=== PATIENT | female | born 1980 | race Two or more races ===

== ENCOUNTER 2023-09-29 06:14 | Day surgery (SDC) | payer OTHER, SELFPAY ==
[2023-09-15 09:12] LABS: % Basophils 0.8 % (0-2); % Eosinophils 3.5 % (0-6); % Immature Granulocytes 0.7 % (0-0.5); % Monocytes 5.9 % (1.7-9.3); % Neutrophils 68.1 % (42.2-75.2); Absolute Basophils 0.1 10^3/uL (0-0.2); Absolute Eosinophils 0.3 10^3/uL (0-0.7); Absolute Immature Granulocytes 0.1 10^3/uL (0-0.05); Absolute Lymphocytes 1.6 10^3/uL (1.2-3.4); Absolute Monocytes 0.4 10^3/uL (0.1-0.6); Absolute Neutrophils 5.1 10^3/uL (1.4-6.5); Hemoglobin 13.5 g/dL (12.0-16.0); Mean Corp Hgb Conc. 33.8 g/dL (33.0-37.0); Mean Corpuscular Hgb 27.3 pg (27.0-31.0); Mean Platelet Volume 10.3 fL (7.4-10.4); Nucleated Red Blood Cells % 0 %; Platelet Count 294 10^3/uL (130-400); Red Blood Cell Count 4.94 10^6/uL (4.20-5.40); Red Cell Dist. Width 13.2 % (11.5-14.5); White Blood Cell Count 7.4 10^3/uL (4.8-10.8)
[2023-09-15 09:26] LABS: Blood Urea Nitrogen 4 mg/dl (7-17); Calcium 8.5 mg/dl (8.4-10.2); Carbon Dioxide 24 mmol/L (22-30); Chloride 104 mmol/L (98-107); Glucose 78 mg/dl (70-99); Potassium 3.8 mmol/L (3.5-5.1); Sodium 137 mmol/L (135-145); eGFR > 60.00
[2023-09-15 09:46] LABS: Beta HCG Quantitative < 2.39 mIU/ml
[2023-09-15 10:34] VITALS: BMI 30.6
[2023-09-29] VITALS (11 sets, daily range): BP systolic 124–170; BP diastolic 65–92; BMI 30.6
[2023-09-29 06:53] LABS: Glucose - Point of Care 91 mg/dl (70-99)
[2023-09-29] MEDS: NORMOSOL-R 1000 IV ×3 (06:54→22:39)
[2023-09-29] MEDS: TYLENOL 1000 MG PO ×3 (06:54→17:52)
[2023-09-29 10:24] LABS: Glucose - Point of Care 184 mg/dl (70-99)
[2023-09-29] MEDS: DILAUDID 0.5 MG IV (10:26)
--- NOTE | 2023-09-29 10:28 | W.IMMPOSTOP ---
Surgical Immed Post Op Note
-
Primary Surgeon: Martha Hare DO
Treatment Specialist: ÁLVARO Vaughan, ÁLVARO Louis
Pre-op Diagnosis: Menorrhagia, severe dysmenorrhea, left ovarian cyst likely endometrioma
Post-op Diagnosis: same, left endometrioma, pelvic adhesions
Procedure Performed: RA TLH Left salpingo-oopherectomy right salpingectomy lysis adhesions
Anesthesia Type: general ET Dr. Plascencia
Specimen / Cultures: uterus, cervix, left tube and ovary with endometrioma right fallopian tube
Estimated Blood Loss: 10 ml
Fluids: 1000ml
Urine output: 600ml clear yellow urine
Complications: none
Operative Findings: Normal appearing uterus, left ovarian endometrioma/paul cyst approx 4 cm, adhesions involving left ovary and pelvic peritoneum, normal appearing tubes and right ovary.
Counts correct times 2
Stable to recovery.
[2023-09-29 10:47] LABS: Hematocrit 41.3 % (37.0-47.0); Hemoglobin 13.8 g/dL (12.0-16.0)
[2023-09-29] MEDS: TORADOL 15 MG IV ×3 (11:02→22:43)
[2023-09-29 11:15] LABS: Blood Urea Nitrogen 6 mg/dl (7-17); Calcium 8.2 mg/dl (8.4-10.2); Carbon Dioxide 24 mmol/L (22-30); Chloride 102 mmol/L (98-107); Estimated Creatinine Clearance > 125 ml/min; Glucose 203 mg/dl (70-99); Potassium 4.3 mmol/L (3.5-5.1); Sodium 136 mmol/L (135-145); eGFR > 60.00
[2023-09-29 12:16] LABS: Glucose - Point of Care 203 mg/dl (70-99)
--- NOTE | 2023-09-29 12:53 | PTCARENOTE ---
Patient admitted from pacu post robotic assisted hysterectomy with right salpingectomy and left oophorectomy.The patient is drosy but arousable.She rates her pain at a 2 out of 10.All laparoscopic sites are dry with no drainage.There is no bleeding
on the esequiel pad.The patient is in her bed with the call castillo in reach.Her is at the bedside.
[2023-09-29] MEDS: NOVOLOG FLEXPEN 4 UNITS SC ×2 (12:57→17:51)
[2023-09-29] MEDS: NOVOLOG FLEXPEN-MODERATE RESISTANCE 3 UNITS SC (12:57)
[2023-09-29] MEDS: MORPHINE SULFATE 2 MG IV (16:12)
[2023-09-29 16:52] LABS: Glucose - Point of Care 281 mg/dl (70-99)
[2023-09-29] MEDS: NOVOLOG FLEXPEN-MODERATE RESISTANCE 5 UNITS SC (17:50)
[2023-09-29] MEDS: LOVENOX 40 MG SC (17:52)
[2023-09-29] MEDS: PEPCID 20 MG PO (20:24)
[2023-09-29] MEDS: COLACE 100 MG PO (20:24)
[2023-09-29] MEDS: NORMOSOL-R IV (20:24)
[2023-09-29] MEDS: ROXICODONE 2.5 MG PO (20:28)
[2023-09-29 21:39] LABS: Glucose - Point of Care 293 mg/dl (70-99)
[2023-09-29] MEDS: LANTUS 0.340000000000000024 UNITS SC (22:37)
--- NOTE | 2023-09-29 22:47 | PTCARENOTE ---
patient's out to nurse's station to report patient feeling nauseous and light headed. patient had been walking back from bathroom and stated she became very hot, nauseous and light headed but made it back to her bed on her own. vital signs
assessed and within normal. IVF restarted as patient says she can not tolerating taking anything PO right now. surgical sites intact and no vaginal bleeding noted or reported by patient. care on going.
--- NOTE | 2023-09-29 23:51 | PTCARENOTE ---
patient reports 'feeling better' no c/o nausea or vomiting. stated she has sipped some water and also walked to bathroom with tech supervision and had no feelings of lightheadedness this time. will leave IVF running overnight.
[2023-09-30] MEDS: TYLENOL 1000 MG PO ×2 (01:06→07:21)
[2023-09-30 03:40] VITALS: BP 104/57
[2023-09-30] MEDS: TORADOL 15 MG IV (05:36)
[2023-09-30] MEDS: NORMOSOL-R IV (05:53)
[2023-09-30 07:06] LABS: % Basophils 0.3 % (0-2); % Eosinophils 0.1 % (0-6); % Immature Granulocytes 0.4 % (0-0.5); % Lymphocytes 11.5 % (20.5-51.1); % Monocytes 6.6 % (1.7-9.3); % Neutrophils 81.1 % (42.2-75.2); Absolute Immature Granulocytes 0.1 10^3/uL (0-0.05); Absolute Lymphocytes 1.3 10^3/uL (1.2-3.4); Absolute Monocytes 0.7 10^3/uL (0.1-0.6); Hematocrit 27.3 % (37.0-47.0); Mean Corpuscular Hgb 27.2 pg (27.0-31.0); Mean Corpuscular Volume 82.5 fL (81.0-99.0); Mean Platelet Volume 10.1 fL (7.4-10.4); Nucleated Red Blood Cells % 0 %; Platelet Count 277 10^3/uL (130-400); Red Blood Cell Count 3.31 10^6/uL (4.20-5.40); Red Cell Dist. Width 13.1 % (11.5-14.5); White Blood Cell Count 11.1 10^3/uL (4.8-10.8)
[2023-09-30 07:30] LABS: Blood Urea Nitrogen 15 mg/dl (7-17); Carbon Dioxide 22 mmol/L (22-30); Chloride 98 mmol/L (98-107); Estimated Creatinine Clearance > 125 ml/min; Potassium 4.5 mmol/L (3.5-5.1); Sodium 128 mmol/L (135-145)
[2023-09-30 07:35] VITALS: BP 122/67
[2023-09-30 07:51] LABS: Glucose - Point of Care 338 mg/dl (70-99)
[2023-09-30] MEDS: NOVOLOG FLEXPEN-MODERATE RESISTANCE 7 UNITS SC (09:05)
[2023-09-30] MEDS: NOVOLOG FLEXPEN 4 UNITS SC (09:05)
[2023-09-30] MEDS: COLACE 100 MG PO (09:06)
[2023-09-30] MEDS: PEPCID 20 MG PO (09:06)
--- NOTE | 2023-09-30 09:28 | W.PN.OBG.DWH ---
Today's Communication / Plan
-
dc home
check chem 7 at end of week
Assessment/Plan
-
POD#1. robotic TLH, L ooph, bilat salpingectomies
Subjective Data
-
no complaints, voiding
Objective Data
-
Laboratory Results
09/30/23 06:41
09/30/23 06:41
Vital Signs
Temp Pulse Resp BP Pulse Ox
98.1 F 82 16 122/67 100
09/30/23 07:35 09/30/23 07:35 09/30/23 07:35 09/30/23 07:35 09/30/23 07:35
lungs cl
cor rrr
abd +bs soft, nt, incis sites c/d/i
ext nt, athrombic pumps in place
--- NOTE | 2023-09-30 10:29 | CM ---
CM reviewed chart and noted dc order
Bedside meeting with pt and spouse
They reside in a 2SH with 1 LISA- full flight to 2nd floor
Independent at baseline- no DMEs
No dc needs noted
Discharge Disposition- home, no needs
[2023-09-30 11:05] VITALS: BP 114/64
== END 2023-09-30 11:39 | disposition home or self-care (01) ==
LOC: SDS 06:14
PROVIDERS: ATTENDING PHYSICIAN Obstetrics & Gynecology; FAMILY PHYSICIAN Internal Medicine
DX: N72 Inflammatory disease of cervix uteri (principal); N80.102 Endometriosis of left ovary, unspecified depth; N92.0 Excessive and frequent menstruation with regular cycle; N83.202 Unspecified ovarian cyst, left side; N73.6 Female pelvic peritoneal adhesions (postinfective); E11.9 Type 2 diabetes mellitus without complications
CPT/HCPCS: 58571; 88307; 36415; 80048; 80051; 82565; 82962; 84520; 84702; 85014; 85018; 85025; 86850; 86900; 86901

== ENCOUNTER 2023-10-07 02:19 | Inpatient (IN) | payer OTHER, SELFPAY ==
[2023-10-06 21:10] VITALS: BP 104/76; BMI 29.8
[2023-10-06 21:51] VITALS: BP 122/65
[2023-10-06] MEDS: MOTRIN 600 MG PO (21:57)
[2023-10-06 21:59] LABS: % Basophils 0.4 % (0-2); % Eosinophils 2.1 % (0-6); % Immature Granulocytes 1.2 % (0-0.5); % Lymphocytes 11.7 % (20.5-51.1); % Monocytes 5.2 % (1.7-9.3); % Neutrophils 79.4 % (42.2-75.2); Absolute Eosinophils 0.2 10^3/uL (0-0.7); Absolute Immature Granulocytes 0.1 10^3/uL (0-0.05); Absolute Lymphocytes 1.3 10^3/uL (1.2-3.4); Absolute Monocytes 0.6 10^3/uL (0.1-0.6); Hematocrit 29.8 % (37.0-47.0); Hemoglobin 10.1 g/dL (12.0-16.0); Mean Corp Hgb Conc. 33.9 g/dL (33.0-37.0); Mean Corpuscular Hgb 27.7 pg (27.0-31.0); Mean Corpuscular Volume 81.6 fL (81.0-99.0); Nucleated Red Blood Cells % 0 %; Platelet Count 404 10^3/uL (130-400); Red Blood Cell Count 3.65 10^6/uL (4.20-5.40); Red Cell Dist. Width 13.2 % (11.5-14.5); White Blood Cell Count 11.3 10^3/uL (4.8-10.8)
[2023-10-06 22:00] VITALS: BP 102/68
[2023-10-06 22:07] LABS: Lactic Acid 1.8 mmol/L (0.7-2.0)
[2023-10-06 22:12] LABS: ALT (SGPT) 23 U/L (0-35); AST (SGOT) 25 U/L (14-36); Albumin 4.3 g/dl (3.5-5.0); Alkaline Phosphatase 90 U/L (38-126); Blood Urea Nitrogen 10 mg/dl (7-17); Carbon Dioxide 26 mmol/L (22-30); Chloride 97 mmol/L (98-107); Estimated Creatinine Clearance 125 ml/min; Glucose 178 mg/dl (70-99); Potassium 4.6 mmol/L (3.5-5.1); Sodium 131 mmol/L (135-145); Total Bilirubin 1.3 mg/dl (0.2-1.3); Total Protein 7.1 g/dl (6.3-8.2); eGFR > 60.00
[2023-10-06] MEDS: NSS 1000 IV (22:33)
--- NOTE | 2023-10-06 22:45 | ED.GENMED ---
History of Present Illness
<Shahla Trejo PA-C - Last Filed: 10/07/23 02:46>
General
Chief Complaint: Fever
Source: patient, records and family
Exam Limitations: none
Time Seen by Provider: 10/06/23 21:48
Nursing documentation reviewed up to this point in time: agreed with
Travel History
Have you had any contact with someone who has COVID-19?: No
Do you have any symptoms of coronavirus? Fever > 100 degrees, chills, cough, shortness of breath, sore throat, loss of taste or smell, muscle aches, or headache?: No
History of Present Illness
History of Present Illness:
Patient is a 40-year-old female with past medical history of insulin-dependent diabetes, GERD, endometriosis, presents to the emergency department for evaluation of fever. Patient underwent laparoscopic hysterectomy, left salpingo-oophorectomy,
right salpingectomy and lysis of adhesions on September 29, 2023 at [facility]. Patient reports that she has had low-grade fevers for the past 3 or 4 days, with Tmax being 99 degrees Fahrenheit. Patient reports that she went to see her GEOPHYSICAL DATA TECHNICIAN
today and they told her that her incisions look good and gave her a prescription to have blood work tomorrow. However they, they advised her that if her temperature went above 100.6, that she should come to the emergency department for further
evaluation. Patient reports that her fever went up to 102 �F at home this evening, prompting her to come to the emergency department. Patient endorses fevers, chills, body aches. Patient denies chest pain, shortness of breath. Patient does note
a dry cough and states that her parents are currently sick with upper respiratory symptoms as well as a cough. Patient notes some abdominal discomfort but attributes that to her recent surgery. Patient denies nausea, vomiting, change in her bowel
habits. Patient notes that it feels like it is more difficult to get the urine out but denies any pain or burning with urination.
Past History
<Shahla Trejo PA-C - Last Filed: 10/07/23 02:46>
Past History
ED Past Medical History: GERD, IDDM and Other (endometriosis)
ED Past Surgical History: Appendectomy and Other ([place] teeth extraction)
Social History
Tobacco: Non-smoker
Alcohol: Occasional
Drug: None
Review of Systems
<Shahla Trejo PA-C - Last Filed: 10/07/23 02:46>
Review of Systems
Allergies reviewed?: Yes
All Other Systems: ROS reviewed and negative except as documented in HPI and ROS
Constitutional: Reports fever and chills
EENT: Reports no symptoms
Respiratory: Reports cough; Denies trouble breathing
Cardiac: Reports no symptoms; Denies chest pain
ABD/GI: Reports abdominal pain; Denies nausea, vomiting, diarrhea or constipated
: Reports difficulty voiding; Denies dysuria
Musculoskeletal: Reports no symptoms
Skin: Reports no symptoms
Neurological: Reports no symptoms
Endocrine: Reports no symptoms
Hematologic/Lymphatic: Reports no symptoms
Psychiatric: Reports no symptoms
Phy Exam
<Shahla Trejo PA-C - Last Filed: 10/07/23 02:46>
General Physical Exam
General Presentation: well appearing and no apparent distress
General Skin: warm and dry
General Habitus: normal
General Mental: alert
General Hydration: appears well hydrated
ENT Exam
ENT Exam: EOMI, pharynx normal, neck supple and normocephalic
Eye Exam
Eye Exam: PERRL, cornea clear and conjunctiva normal
Cardiovascular Exam
Cardiovascular Exam: regular rate/rhythm, no edema, no murmur and normal peripheral pulses
Pulmonary Exam
Pulmonary Exam: lungs clear, no respiratory distress, no rales, no crackles, no rhonchi, no stridor, no wheezing and no cough
Gastrointestinal Exam
Gastrointestinal Exam: normal bowel sounds, soft, no organomegaly and other (incision sites to the upper abdomen are clean, dry, and intact, there is mild ttp diffusely over the upper quadrants and mid-epigastrium, no lower abdominal ttp)
Neurological Exam
Neurological Exam: alert, oriented x3, no motor deficits and speech normal
Musculoskeletal Exam
Musculoskeletal Exam: full ROM and no edema
Skin Exam
Skin Exam: normal color, warm/dry, no rash and no petechia
Psychiatric Exam
Psychiatric Exam: normal mood/affect
Course
<Shahla Trejo PA-C - Last Filed: 10/07/23 02:46>
Orders/Labs/Results
Orders:
Orders
10/06/23 21:46
CMP [Comprehensive Metabolic Panel] Urgent
Blood Culture Routine
SAM Source: Blood/Venous
Specimen Description:
Date Specimen was Collected: 10/06/23
Time Specimen was Collected: 21:44
10/06/23 21:47
Complete Blood Count/With Diff Urgent
Lactic Acid Urgent
10/06/23 21:54
Ibuprofen [Motrin] 600 mg PO NOW STA
10/06/23 22:23
0.9% Sodium Chloride 1000 ml [Nss] 1,000 ml IV BOLUS
10/06/23 22:24
CR Chest - 2 Views Urgent
Comment:
Reason For Exam: cough, fever
10/06/23 22:35
COVID-19 Antigen Urgent
Source: Nasal Swab
Influenza A+B Rapid Molecular Urgent
SAM Source: Nasal Swab
Specimen Description:
10/06/23 22:58
Urine Culture Reflexed from UA [Urinalysis Reflex To Culture] Urgent
Date Specimen was Collected: 10/06/23
Time Specimen was Collected: 22:28
Urine Microscopic Reflex Cult Urgent
10/07/23 00:00
CT Abd/pelvis W Iv Cont Urgent
Reason For Exam: recent gynecological surgery, fever, abdominal john
10/07/23 01:58
Admit/Transfer Patient As Directed
Co-Sign Provider:
Level of Care: Inpatient admission
Assign to:: Medical/Surgical
Physician / Group: la nena
Transfer to: Medical/Surgical
Diagnosis: fever, cuff collection
Patient Condition: Good
Reason for Hospitalization: iv abx, rx collection
Expected length of stay greater than two midnights?: Yes
ELOS- Estimated Length of Stay in days: 3
I certify the patient meets the requirements for IP care: Yes
10/07/23 02:00
Piperacillin/Tazo 4.5 Gram [Zosyn] 4.5 gram in 100 ml IV Q6H
Abnormal Lab Results
10/06/23 10/06/23 10/06/23
21:46 21:47 22:58
WBC 11.3 H 10^3/uL
(4.8-10.8)
RBC 3.65 L 10^6/uL
(4.20-5.40)
Hgb 10.1 L g/dL
(12.0-16.0)
Hct 29.8 L %
(37.0-47.0)
Plt Count 404 H D 10^3/uL
(130-400)
Abs Immat Gran (auto) 0.1 H 10^3/uL
(0-0.05)
Absolute Neuts (auto) 9.0 H 10^3/uL
(1.4-6.5)
Immature Gran % 1.2 H %
(0-0.5)
Neutrophils % 79.4 H %
(42.2-75.2)
Lymphocytes % 11.7 L %
(20.5-51.1)
Sodium 131 L mmol/L
(135-145)
Chloride 97 L mmol/L
(98-107)
Creatinine 0.5 L mg/dL
(0.6-1.0)
Glucose 178 H mg/dl
(70-99)
Urine Ketones 1+ A
(Negative)
Leukocyte Esterase Rfl Trace A
(Negative)
Urine Bacteria (Reflex) Few A
(Negative)
10/06/23 21:47
10/06/23 21:46
Vital Signs
Initial and Last Documented VS:
Initial Vital Signs
Temp Pulse Resp BP Pulse Ox
99.6 F 108 16 104/76 99
10/06/23 21:10 10/06/23 21:10 10/06/23 21:10 10/06/23 21:10 10/06/23 21:10
Last Documented Vital Signs
Temp Pulse Resp BP Pulse Ox
100.0 F 108 16 102/68 99
10/07/23 00:39 10/06/23 21:10 10/06/23 21:10 10/06/23 22:00 10/06/23 22:30
<Sai Booth, DO - Last Filed: 10/06/23 23:14>
Orders/Labs/Results
Orders:
Orders
10/06/23 21:46
CMP [Comprehensive Metabolic Panel] Urgent
Blood Culture Routine
SAM Source: Blood/Venous
Specimen Description:
Date Specimen was Collected: 10/06/23
Time Specimen was Collected: 21:44
10/06/23 21:47
Complete Blood Count/With Diff Urgent
Lactic Acid Urgent
10/06/23 21:54
Ibuprofen [Motrin] 600 mg PO NOW STA
10/06/23 22:23
0.9% Sodium Chloride 1000 ml [Nss] 1,000 ml IV BOLUS
10/06/23 22:24
CR Chest - 2 Views Urgent
Comment:
Reason For Exam: cough, fever
10/06/23 22:35
COVID-19 Antigen Urgent
Source: Nasal Swab
Influenza A+B Rapid Molecular Urgent
SAM Source: Nasal Swab
Specimen Description:
10/06/23 22:58
Urine Culture Reflexed from UA [Urinalysis Reflex To Culture] Urgent
Date Specimen was Collected: 10/06/23
Time Specimen was Collected: 22:28
Urine Microscopic Reflex Cult Urgent
10/07/23 00:00
CT Abd/pelvis W Iv Cont Urgent
Reason For Exam: recent gynecological surgery, fever, abdominal john
10/07/23 01:58
Admit/Transfer Patient As Directed
Co-Sign Provider:
Level of Care: Inpatient admission
Assign to:: Medical/Surgical
Physician / Group: yeh
Transfer to: Medical/Surgical
Diagnosis: fever, cuff collection
Patient Condition: Good
Reason for Hospitalization: iv abx, rx collection
Expected length of stay greater than two midnights?: Yes
ELOS- Estimated Length of Stay in days: 3
I certify the patient meets the requirements for IP care: Yes
10/07/23 02:00
Piperacillin/Tazo 4.5 Gram [Zosyn] 4.5 gram in 100 ml IV Q6H
Abnormal Lab Results
10/06/23 10/06/23 10/06/23
21:46 21:47 22:58
WBC 11.3 H 10^3/uL
(4.8-10.8)
RBC 3.65 L 10^6/uL
(4.20-5.40)
Hgb 10.1 L g/dL
(12.0-16.0)
Hct 29.8 L %
(37.0-47.0)
Plt Count 404 H D 10^3/uL
(130-400)
Abs Immat Gran (auto) 0.1 H 10^3/uL
(0-0.05)
Absolute Neuts (auto) 9.0 H 10^3/uL
(1.4-6.5)
Immature Gran % 1.2 H %
(0-0.5)
Neutrophils % 79.4 H %
(42.2-75.2)
Lymphocytes % 11.7 L %
(20.5-51.1)
Sodium 131 L mmol/L
(135-145)
Chloride 97 L mmol/L
(98-107)
Creatinine 0.5 L mg/dL
(0.6-1.0)
Glucose 178 H mg/dl
(70-99)
Urine Ketones 1+ A
(Negative)
Leukocyte Esterase Rfl Trace A
(Negative)
Urine Bacteria (Reflex) Few A
(Negative)
10/06/23 21:47
10/06/23 21:46
Vital Signs
Initial and Last Documented VS:
Initial Vital Signs
Temp Pulse Resp BP Pulse Ox
99.6 F 108 16 104/76 99
10/06/23 21:10 10/06/23 21:10 10/06/23 21:10 10/06/23 21:10 10/06/23 21:10
Last Documented Vital Signs
Temp Pulse Resp BP Pulse Ox
100.0 F 108 16 102/68 99
10/07/23 00:39 10/06/23 21:10 10/06/23 21:10 10/06/23 22:00 10/06/23 22:30
<Shahla Trejo PA-C - Last Filed: 10/07/23 02:46>
*Critical Care Note
Total Time (30-74mins, 75-104mins- exclusive of procedures): Not Applicable
<Shahla Trejo PA-C - Last Filed: 10/07/23 02:46>
Update Note
Update Note:
43-year-old female presents to the emergency department for evaluation of fever 1 week after undergoing gynecological surgery. Patient endorses a dry cough and some mild abdominal pain, denies any other complaints today. On arrival, patient's
vital signs are stable, she was initially afebrile but on recheck was found to be febrile to 103 �F. On exam, patient is well-appearing, she is in no acute distress, her lungs are clear to auscultation bilaterally, her incision sites appear to be
healing well without evidence of infection, she does have mild diffuse upper abdominal tenderness to palpation without rebound or guarding. Labs are obtained and are notable for a very mild leukocytosis to 11.3 with a left shift. Urinalysis is not
consistent with infection. Chest x-ray demonstrates no acute disease process. COVID and flu swabs are negative. Case discussed with ED attending who also examined the patient and agrees with plan to obtain a CT of the abdomen pelvis to evaluate
further. CT demonstrates hematoma at the vaginal cuff which could potentially be infected. Case was discussed with Dr. Tinajero, on-call for MANAGER CHINA who came to the emergency department to evaluate the patient at bedside. She recommends starting the
patient on Zosyn and admitting the patient to her service. Plan was discussed with the patient and her sister who expressed understanding and agreed.
ED Attending Note
<Shahla Trejo PA-C - Last Filed: 10/07/23 02:46>
-
Portions of this chart may have been created with voice recognition software.� Occasional wrong word or��sound alike� substitutions may have occurred due to the inherent limitations of voice recognition software.
<Sai Booth DO - Last Filed: 10/06/23 23:14>
ED Attending Note
Patient seen and examined by attending physician: Yes
I performed the substantive portion of visit, reviewed & personally made and approve the management plan that is documented in note by myself or SOWMYA.: Yes
ED Attending Note:
43-year-old female presents with fever. Recent robotic assisted total laparoscopic hysterectomy. Does have some lower abdominal pain. Sick contacts recently with some viral sources. Exam: Incisions look intact and without redness. Does have
moderate lower abdominal tenderness. Assessment and plan: Check CT. Discussed with MANAGER CHINA if needed
Discharge Plan
Departure
Patient Disposition: Admit
Date of Disposition: 10/07/23
Time of Disposition: 01:11
Presentation/result/management discussed w/ accepting MD/DO: Dr. Tinajero- Gynecology
Condition: Good
Covid-19: Negative COVID-19
Discharge Problem:
Post op infection
Interventions
Interventions:
*Risk Screen - Suicide Last Done: 10/06/23 21:10
*General Assessment Last Done: 10/06/23 22:04
*Neglect/Abuse Screening Last Done: 10/06/23 21:10
ED- Fall Risk Assessment Last Done: 10/06/23 22:04
*ED COVID-19 Vaccine History Last Done: 10/06/23 21:10
ED- Neurological Assessment Last Done: 10/06/23 22:04
ED-Skin Assessment Last Done: 10/06/23 22:04
[2023-10-06 22:58] LABS: COVID-19 Antigen Negative (Negative)
[2023-10-06 23:04] LABS: Urine Albumin Negative (Neg - Trace); Urine Bilirubin Negative (Negative); Urine Character Clear (Clear); Urine Color Yellow; Urine Glucose Negative (Negative); Urine Ketone 1+ (Negative); Urine Leukocyte Trace (Negative); Urine Nitrite Negative (Negative); Urine Occult Blood Negative (Negative); Urine Specific Gravity 1.005 (<1.030); Urine Urobilinogen Negative (Neg - 1+)
[2023-10-06 23:12] LABS: Urine Squamous Cell >30 /LPF (Few)
[2023-10-06 23:13] LABS: Urine Bacteria Few (Negative); Urine Red Blood Cell 0-2 /HPF (0-2)
[2023-10-07] VITALS (8 sets, daily range): BP systolic 75–112; BP diastolic 48–80; BMI 30.1
[2023-10-07] MEDS: ZOSYN 100 IV ×4 (01:12→20:10)
--- NOTE | 2023-10-07 02:00 | EDRN ---
WINCHMAN/CRANE OPERATOR at bedside doing exam
--- NOTE | 2023-10-07 02:15 | W.PN.OBG.DWH ---
Today's Communication / Plan
-
admit for iv abx
keep NPO for possible drainage of collection via sedation
Assessment/Plan
-
admit for iv abx
await cx results
review ct scan findings in am
possible drainage of collection
Subjective Data
-
H and P dictated
POD#8 for 43 yo P2 s/p robotic tLH, LSO, R salpingectomy ANJUM with tm 103. elevated wbc. suprapubic discomfort with trickling stream.
Objective Data
-
Laboratory Results
10/06/23 21:47
10/06/23 21:46
Vital Signs
Temp Pulse Resp BP Pulse Ox
100.0 F 108 16 102/68 99
10/07/23 00:39 10/06/23 21:10 10/06/23 21:10 10/06/23 22:00 10/06/23 22:30
vaginal exam. cuff suture line intact and unable to drain collection in ED
--- NOTE | 2023-10-07 03:14 | EDRN ---
Patients BP is a little lower, tiger texted Dr. Tinajero to inform about vitals, Dr. Tinajero ordering fluids and keep patient NPO
[2023-10-07 08:02] LABS: Glucose - Point of Care 234 mg/dl (70-99)
[2023-10-07] MEDS: TYLENOL 1000 MG PO ×3 (08:28→17:16)
--- NOTE | 2023-10-07 09:46 | CON.HOSP ---
Consultation
-
Date/Time Consultation Requested: 10/07/23 9AM
Date/Time Consultation Performed: 10/07/23 9:40AM
Requesting Provider: Dr. Hare
Performing Provider: Dr. Ciera Merchant
Reason for Consultation: Diabetes management
Family Physician
-
Family Physician: Fernandez Dumont, DO
Chief Complaint
-
fever, abdominal pain post hysterectomy
History of Present Illness
Patient is a 43-year-old female with type 2 diabetes mellitus on insulin since 2015 who had a hysterectomy on September 29, 2023 for endometriosis and ovarian cyst. She had low-grade fever since but last evening presented with fever of 103 �F. She
also had lower abdominal pain. Patient states that her incision is high output but the pain is not there. She was found to have 'pockets of fluids' in her abdomen and was admitted. We are asked to consult on the patient for diabetes management.
Medical History
Past Medical History
Past Medical History: Reports Other
Additional Past Medical History:
Type 2 diabetes mellitus since age 26 insulin requiring since 2015
Hyperlipidemia
Endometriosis with ovarian cyst
Past Surgical History: Reports Other
Additional Past Surgical History:
Appendectomy 1993
Hysterectomy 2023
Social History
Tobacco: Non-smoker
Alcohol: None
Drug: None
Family History
Family History: Other
Allergies / Home Medications
Allergies reflects when Allergies were last updated in [facility].
Home Medications with original date entered in [facility]
Allergy/Medication List:
Allergies
Allergy/AdvReac Type Severity Reaction Status Date / Time
acetaminophen [From Vicodin] Allergy Nausea / Verified 10/06/23 21:12
Vomiting
hydrocodone [From Vicodin] Allergy Nausea / Verified 10/06/23 21:12
Vomiting
Home Medications
Novolin N FlexPen 20 units SC MEALS 09/25/23
Pepcid 1 tab PO DAILY Gastrointestinal Issue 09/25/23
Tresiba FlexTouch U-200 34 units SC DAILY Diabetes 09/25/23
losartan 50 mg tablet 50 mg PO HS Blood Pressure 09/25/23
omega-3 fatty acids 2 cap PO DAILY Supplement 09/25/23
acetaminophen 325 mg tablet 1,000 mg (3.0769 x 325 mg) PO Q6 #0 tabs 09/29/23
oxycodone 5 mg tablet 2.5 mg (1/2 x 5 mg) PO Q4HPRN PRN moderate pain #0 tabs 09/29/23
oxycodone 5 mg tablet 5 mg PO Q4HPRN PRN severe pain when tolerating PO #10 tabs 09/29/23
rosuvastatin 5 mg tablet 5 mg PO HS #0 tabs 09/29/23
sennosides 8.6 mg tablet (Senna Laxative) 8.6 mg PO BIDPRN PRN constipation #0 tabs 09/29/23
simethicone 80 mg chewable tablet 80 mg PO Q6HPRN PRN gas distention #0 tabs 09/29/23
Review of Systems
-
History Source: Patient
Constitutional: Reports Fever, Night Sweats and Chills
EENT: Reports No Symptoms
Respiratory: Reports No Symptoms
Cardiac: Reports No Symptoms
Abdomen/GI: Reports Abdominal Pain; Denies Nausea, Vomiting, Diarrhea or Constipated
: Reports Difficulty Voiding (little amounts of urine until speculum exam in ED by ROAD FREIGHT CONDUCTOR)
Musculoskeletal: Reports No Symptoms
Skin: Reports No Symptoms
Neurological: Reports No Symptoms
Endocrine: Reports No Symptoms
Hematologic/Lymphatic: Reports No Symptoms
Psych: Reports No Symptoms
Physical Exam
Vital Signs
Vital Signs
Temp Pulse Resp BP Pulse Ox
99 F 87 18 100/62 100
10/07/23 07:06 10/07/23 07:06 10/07/23 07:06 10/07/23 07:06 10/07/23 07:06
Physical Exam
General: Well Developed, Well Nourished and No Apparent Distress
HEENT: Normocephalic and Atraumatic
Respiratory: Clear; Negative Wheezes, Rales or Rhonchi
Cardiac: S1/S2 and Regular Rhythm; Negative Murmur
GI: Soft, Non Distended, Normal Bowel Sounds, Tender (bilateral lower abdomen L > R) and Other (incisions c/d/i)
Musculoskeletal: No Clubbing, No Cyanosis and No Edema
Skin: Warm
Neuro: Awake and Alert
Psych: Calm
Laboratory Results
-
max temp for 24 hours
10/06/23
21:48
Temp 103.0 F H
Laboratory Results
10/06/23 21:47
10/06/23 21:46
Lactic Acid 1.8 mmol/L (0.7-2.0) 10/06/23 21:47
Total Bilirubin 1.3 mg/dl (0.2-1.3) 10/06/23 21:46
AST 25 U/L (14-36) 10/06/23 21:46
ALT 23 U/L (0-35) 10/06/23 21:46
Alkaline Phosphatase 90 U/L (38-126) 10/06/23 21:46
Impression / Plan
-
pt is a 43 year old female
type 2 DM uncontrolled--blood sugars running in the 200s--patient states that she had been uncontrolled prior to her hysterectomy and that they were adjusting medications--she remains n.p.o. for now due to possibility of needing aspiration of fluid
collection (likely hematoma versus abscess)--will add moderate scale insulin sliding scale coverage--once patient is able to eat will restart all medications and adjust from there--diabetic diet to be started once IR procedure completed--will
continue losartan for renal protective effect
Abdominal pain--hematoma versus abscess--appreciate RO[employer] CONDUCTOR input--agree with IR aspiration for culture--agree with continuing antibiotics
Hyperlipidemia--continue rosuvastatin
DVT prophylaxis as per RO[facility] [employer] CONDUCTOR
CODE STATUS--full code
Thank you for allowing us to consult on your patient--we will follow
--- NOTE | 2023-10-07 10:07 | CM ---
CM reviewed chart and met with patient.
She and spouise reside in a 2SH with 1 LISA- full flight to 2nd floor
Independent at baseline- no DMEs
No dc needs noted but patient states not decision made on how long she will need IV antibiotics. CM to follow for discharge needs.
Discharge Disposition- home.
--- NOTE | 2023-10-07 11:08 | W.PN.OBG.DWH ---
Today's Communication / Plan
-
NPO for IRAD drainage today
May eat after returns from procedure
Diabetes mgmt per hospitalist.
Assessment/Plan
-
POD#7 S/P RA TLH BL salpingectomy for menorrhagia/fibroid
Fever and pelvic collection-reviewed CT with Dr. Jean. Also communicated with Dr. Fofana. Collection seems to be more of hematoma than abscess appearance.
DM with elevated BS
Plan: Continue with Zosyn IV
Will have IRad attempt t place drain-if able to obtain fluid to send for culture, rule out abscess. Would prefer to attempt to drain due to fever 103 last night and diabetes. Elevated temp can occur in setting of hematoma but she is high risk for
superinfection of hematoma due to diabetes. Hgb is stable, higher today than oon admit.
Reviewed all of this with Didi. She is aware will be in hospital for at least a few days and clinically improved. Questions answered. Her sister is present the hwole visit for discussion today.
NPO since 09:00 for planned IRAD drainage hopefully.
Suspect back pain may be related to hematoma. Will monitor.
Reviewed case with / Shonda today as well. Diabetes mgmt consult ordered from hospitalist.
Subjective Data
-
I saw Didi approx 1 hr ago. She is feeling ok.
Reports some low backache left >right. Stated urination was more of a trickle before admit byut after Dr. Tinajero attempted to open vaginal cuff (which was not successful) urination improved, normal.
Had chills last pm. Hungry. Has been NPO since 09:00.
Denies abdominal pain, N/V, bleeding
Objective Data
-
Laboratory Results
10/06/23 21:47
10/06/23 21:46
Vital Signs
Temp Pulse Resp BP Pulse Ox
99 F 87 18 100/62 100
10/07/23 07:06 10/07/23 07:06 10/07/23 07:06 10/07/23 07:06 10/07/23 07:06
VSS Tmax 103 (last pm 21:48) Tc this am 99
Cor reg
abd: soft +bs nondistended nontender inc cdi
ext: no calf pain
[2023-10-07] MEDS: HUMULIN N KWIKPEN 10 UNITS SC (11:46)
[2023-10-07 12:02] LABS: Glucose - Point of Care 211 mg/dl (70-99)
--- NOTE | 2023-10-07 13:25 | W.PN.UPDATE ---
Update Note
Progress Note Update
CT guided pelvic collection drain placed, yielding 10 cc of liquified blood products. Collection is likely hematoma rather than abscess. If cultures are negative, may be able to remove drain in the next day or two.
[2023-10-07 14:03] LABS: Glucose - Point of Care 175 mg/dl (70-99)
[2023-10-07] MEDS: NOVOLOG FLEXPEN-MODERATE RESISTANCE 1 UNITS SC (14:06)
[2023-10-07 16:57] LABS: Glucose - Point of Care 307 mg/dl (70-99)
[2023-10-07] MEDS: ROXICODONE 2.5 MG PO (17:16)
[2023-10-07] MEDS: NOVOLOG FLEXPEN-MODERATE RESISTANCE 7 UNITS SC (17:17)
[2023-10-07] MEDS: HUMULIN N KWIKPEN 25 UNITS SC (17:17)
--- NOTE | 2023-10-07 18:04 | PTCARENOTE ---
return from IR ~1330 ANNAMARIA drain placed in rt buttocks. draining sanguinous fluid 4x4 with tape and manish. 1800 ADA diet ordered, some discomfort but no pain. Cultures sent
--- NOTE | 2023-10-07 19:39 | W.PN.UPDATE ---
Update Note
Progress Note Update
Communicated with Dr. Fofana earlier this afternoon. IRAD was able to place drain and approx 10ml was aspirated. Impression was this is hematoma.
RN calling me now with pt request for ibuprofen for pain. Oxycodone was making her nauseous. Ibuprofen ordered
[2023-10-07 21:25] LABS: Glucose - Point of Care 223 mg/dl (70-99)
[2023-10-07] MEDS: MELATONIN 5 MG PO (21:32)
[2023-10-07] MEDS: CRESTOR 5 MG PO (21:32)
[2023-10-07] MEDS: MOTRIN 600 MG PO (21:33)
[2023-10-07] MEDS: COZAAR 50 MG PO (21:33)
[2023-10-07] MEDS: PEPCID 20 MG PO (21:33)
[2023-10-08] MEDS: TYLENOL 1000 MG PO ×4 (01:27→23:04)
[2023-10-08] MEDS: ZOSYN 100 IV ×4 (01:27→20:59)
[2023-10-08 07:05] VITALS: BP 104/52
[2023-10-08 07:32] LABS: Hematocrit 24.6 % (37.0-47.0); Hemoglobin 8.3 g/dL (12.0-16.0); Mean Corp Hgb Conc. 33.7 g/dL (33.0-37.0); Mean Corpuscular Hgb 27.9 pg (27.0-31.0); Mean Corpuscular Volume 82.6 fL (81.0-99.0); Platelet Count 333 10^3/uL (130-400); Red Blood Cell Count 2.98 10^6/uL (4.20-5.40); Red Cell Dist. Width 13.2 % (11.5-14.5); White Blood Cell Count 7.1 10^3/uL (4.8-10.8)
[2023-10-08] MEDS: LANTUS 0.400000000000000022 UNITS SC (08:05)
[2023-10-08] MEDS: NOVOLOG FLEXPEN-MODERATE RESISTANCE 1 UNITS SC ×2 (08:06→17:46)
[2023-10-08] MEDS: HUMULIN N KWIKPEN 30 UNITS SC ×3 (08:06→17:47)
[2023-10-08 08:09] LABS: Blood Urea Nitrogen 6 mg/dl (7-17); Calcium 8.7 mg/dl (8.4-10.2); Carbon Dioxide 24 mmol/L (22-30); Chloride 103 mmol/L (98-107); Estimated Creatinine Clearance 123 ml/min; Glucose 118 mg/dl (70-99); Magnesium 2.1 mg/dl (1.6-2.3); Sodium 136 mmol/L (135-145); eGFR > 60.00
[2023-10-08 08:16] LABS: Glucose - Point of Care 158 mg/dl (70-99)
--- NOTE | 2023-10-08 10:25 | W.PN.HOSP.TC ---
Today's Communication/Plan
-
care per GAS LINE INSTALLER SUPERVISOR
will follow sugars and adjust insulin as needed
Assessment / Plan
Assessment / Plan
pt is a 43 year old female
type 2 DM uncontrolled--blood sugars running in the 200s--patient states that she had been uncontrolled prior to her hysterectomy and that they were adjusting medications- moderate scale insulin sliding scale coverage-- cont diabetic diet--will
continue losartan for renal protective effect--novolog increased to 30 units with meals--increased lantus
Abdominal pain--hematoma versus abscess--appreciate GAS LINE INSTALLER SUPERVISOR input--s/p IR aspiration for culture, drain in place--cultures pending--agree with continuing zosyn
Hyperlipidemia--continue rosuvastatin
DVT prophylaxis as per GAS LINE INSTALLER SUPERVISOR
CODE STATUS--full code
Thank you for allowing us to consult on your patient--we will follow
Anticipated Discharge: > 48 hours
Subjective/Interval History
-
Date of Service: October 08, 2023
pt without any further pain--drain in place s/p IR aspiration
Objective Data
-
Labs:
Laboratory Results
10/08/23 10/08/23
12:00
WBC 7.1
Hgb 8.3 L Pending
Hct 24.6 L Pending
Plt Count 333
Sodium 136
Potassium 4.0
Chloride 103
Carbon Dioxide 24
BUN 6 L
Creatinine 0.5 L
Glucose 118 H
Calcium 8.7
Vital Signs:
max temp for 24 hours
10/07/23
15:36
Temp 98.8 F
Vital Signs
Temp Pulse Resp BP Pulse Ox
97.9 F 72 19 104/52 99
10/08/23 07:05 10/08/23 07:05 10/08/23 07:05 10/08/23 07:05 10/08/23 07:05
I&O
10/07/23 10/08/23 10/09/23
06:59 06:59 06:59
Intake Total 970 / 970 480 / 480
Output Total
Balance 955 / 955 465 / 465
Review of Systems
-
All other systems: Reviewed and negative
Physical Exam
-
General: Well Developed, Well Nourished and No Apparent Distress
HEENT: Normocephalic and Atraumatic
Respiratory: Clear to Auscultation; Negative Wheezes or Rhonchi
Cardiac: Regular Rhythm and S1/S2; Negative Murmur
GI: Soft, Nontender, Nondistended, Normal Bowel Sounds and Other (ANNAMARIA drain in place with bloody d/c)
Musculoskeletal: No Clubbing, No Cyanosis and No Edema
Skin: Warm
Neuro: Awake
--- NOTE | 2023-10-08 10:28 | CM ---
Chart reviewed. CM following for dcp plans. Noted IR drain. Please consult CM if plan is for pt to dc with drain in order to arrange for VN.
Will continue to follow.
[2023-10-08 10:36] LABS: Glycohemoglobin (HgbA1c) 8.2 % (4.0-5.6)
[2023-10-08 12:07] LABS: Glucose - Point of Care 314 mg/dl (70-99)
[2023-10-08] MEDS: NOVOLOG FLEXPEN-MODERATE RESISTANCE 7 UNITS SC (12:16)
[2023-10-08] MEDS: TYLENOL PO (12:18)
[2023-10-08 12:21] LABS: Hemoglobin 8.5 g/dL (12.0-16.0)
--- NOTE | 2023-10-08 12:48 | W.PN.OBG.DWH ---
Today's Communication / Plan
-
Continue IV Zosyn
Awaiting final culture results.
Continue with ANNAMARIA drain until neg cultures.
Plan discussed with pt.
Assessment/Plan
-
Impression:
POD#8 s/p RA TLH B/L salpingectomy for fibroid and meorrhagia
Postop hematoma-hgb stable so expect hematoma to slowly resolve. ANNAMARIA drain in place.
Anemia- related to surgery, menorrhagia hx, hematoma-hgb stable, asymptomatic re: anemia
Postop fever-unclear if from hematoma vs early infection/abscess- no growth on pelvic fluid aspirated.
DM-not well controlled.
Plan:
Continue with IV zosyn.She has been afebrile for 24 hrs at this point. Awaiting culture results.
She is symptomatically improving.
Leave drain in until determining neg cultures.
Appreciate Internal Med input regarding DM mgmt.
Subjective Data
-
Feeling better this am. States since IRAD drain placement, her low pelvic and left sided back pain has resolved.
Denies any fever, chills, nausea, vomiting
Yumi diet
Objective Data
-
Laboratory Results
10/08/23 12:08
10/08/23 06:24
Vital Signs
Temp Pulse Resp BP Pulse Ox
97.9 F 72 19 104/52 99
10/08/23 07:05 10/08/23 07:05 10/08/23 07:05 10/08/23 07:05 10/08/23 07:05
VSS afe
cor reg'
pulm: clear NEg r/r/w
Abd: soft +bs incisions cdi ND/NT
ext: no calf pain
WBC down to 7.1 hgb 8.3 (down from 10.1 on admit) but repeat 8.5 at noon today= stable
Preliminary fluid culture and blood cultures negative.
ANNAMARIA drain: 10ml, 15ml, 15 ml since drain placed.
[2023-10-08 15:33] VITALS: BP 135/76
[2023-10-08 16:54] LABS: Glucose - Point of Care 174 mg/dl (70-99)
[2023-10-08] MEDS: MOTRIN 600 MG PO (20:46)
[2023-10-08 21:01] LABS: Glucose - Point of Care 140 mg/dl (70-99)
[2023-10-08 22:30] VITALS: BP 121/70
[2023-10-08] MEDS: CRESTOR 5 MG PO (22:57)
[2023-10-08] MEDS: MELATONIN 5 MG PO (22:57)
[2023-10-08] MEDS: COZAAR 50 MG PO (22:59)
[2023-10-08] MEDS: PEPCID 20 MG PO (22:59)
[2023-10-09] MEDS: ZOSYN 100 IV ×2 (02:47→08:17)
[2023-10-09 04:54] LABS: Hematocrit 26.3 % (37.0-47.0); Hemoglobin 8.7 g/dL (12.0-16.0); Mean Corp Hgb Conc. 33.1 g/dL (33.0-37.0); Mean Corpuscular Hgb 27.5 pg (27.0-31.0); Mean Corpuscular Volume 83.2 fL (81.0-99.0); Mean Platelet Volume 9.8 fL (7.4-10.4); Platelet Count 391 10^3/uL (130-400); Red Blood Cell Count 3.16 10^6/uL (4.20-5.40); Red Cell Dist. Width 13.2 % (11.5-14.5)
[2023-10-09 05:27] LABS: Blood Urea Nitrogen 5 mg/dl (7-17); Calcium 9.4 mg/dl (8.4-10.2); Carbon Dioxide 26 mmol/L (22-30); Chloride 100 mmol/L (98-107); Estimated Creatinine Clearance 106 ml/min; Glucose 66 mg/dl (70-99); Potassium 3.8 mmol/L (3.5-5.1); Sodium 137 mmol/L (135-145); eGFR > 60.00
[2023-10-09] MEDS: TYLENOL 1000 MG PO (05:53)
[2023-10-09 07:35] VITALS: BP 98/53
[2023-10-09] MEDS: NOVOLOG FLEXPEN-MODERATE RESISTANCE SC (08:21)
[2023-10-09] MEDS: LANTUS 0.400000000000000022 UNITS SC (08:22)
[2023-10-09] MEDS: HUMULIN N KWIKPEN 30 UNITS SC (08:22)
[2023-10-09 08:23] LABS: Glucose - Point of Care 99 mg/dl (70-99)
--- NOTE | 2023-10-09 10:03 | CM ---
Patient seen at bedside with hospitalist and attending. Patient agreed to accept VN and accepted [facility], following review of options. CM sent referral to Liaison await confirmation of acceptance. Patient family to transport home and patient indicated
that she has no further questions. CM will continue to follow for discharge planning needs.
Plan; home with VN; [facility] pending acceptance.
--- NOTE | 2023-10-09 10:07 | W.PN.HOSP.TC ---
Today's Communication/Plan
-
d/c
Assessment / Plan
Assessment / Plan
pt is a 43 year old female
type 2 DM uncontrolled--blood sugars running in the 200s--patient states that she had been uncontrolled prior to her hysterectomy and that they were adjusting medications-- cont diabetic diet--will continue losartan for renal protective effect--meds
adjusted
Abdominal pain--hematoma versus abscess--appreciate MOTOR ASSEMBLY SUPERVISOR input--s/p IR aspiration for culture, drain in place--zosyn to augmentin per MOTOR ASSEMBLY SUPERVISOR
Hyperlipidemia--continue rosuvastatin
DVT prophylaxis as per MOTOR ASSEMBLY SUPERVISOR
CODE STATUS--full code
for d/c
Anticipated Discharge: Today
Subjective/Interval History
-
Date of Service: October 09, 2023
pt cleared for d/c by MOTOR ASSEMBLY SUPERVISOR
Objective Data
-
Labs:
Laboratory Results
10/09/23
04:09
WBC 10.0
Hgb 8.7 L
Hct 26.3 L
Plt Count 391
Sodium 137
Potassium 3.8
Chloride 100
Carbon Dioxide 26
BUN 5 L
Creatinine 0.7
Glucose 66 L
Calcium 9.4
Vital Signs:
max temp for 24 hours
10/08/23
15:33
Temp 98.8 F
Vital Signs
Temp Pulse Resp BP Pulse Ox
98.3 F 69 18 98/53 98
10/09/23 07:35 10/09/23 07:35 10/09/23 07:35 10/09/23 07:35 10/09/23 07:35
I&O
10/08/23 10/09/23 10/10/23
06:59 06:59 06:59
Intake Total 970 / 970 2160 / 2160
Output Total 15 / 15 35 / 35
Balance 955 / 955 2124
Review of Systems
-
All other systems: Reviewed and negative
Physical Exam
-
General: Well Developed, Well Nourished and No Apparent Distress
HEENT: Normocephalic and Atraumatic
Respiratory: Clear to Auscultation; Negative Wheezes or Rhonchi
Cardiac: Regular Rhythm and S1/S2; Negative Murmur
GI: Soft, Nontender, Nondistended and Normal Bowel Sounds
Musculoskeletal: No Clubbing, No Cyanosis and No Edema
Neuro: Awake and Alert
--- NOTE | 2023-10-09 10:19 | W.DS.TRANS ---
Addendum entered and electronically signed by Martha Hare DO 10/09/23 10:35:
blood cult x2 neg x 48hrs
surgical path still pending from 10/01/23
Original Note:
DC Summary - Ground Hand
-
Discharge Instructions:
Discharge Diagnosis/Procedures Postop hematoma/fever
Diet Regular
Activity No strenuous activity
Driving Restrictions No driving for 1 week
Bathing Restrictions OK to Shower
Instructions:
Stand-Alone Forms:
Changes to Home Medications: Yes
Discharge Medications:
DC Medications w/original date entered in [employer]
Pepcid 1 tab PO DAILY Gastrointestinal Issue 09/25/23
losartan 50 mg tablet 50 mg PO HS Blood Pressure 09/25/23
oxycodone 5 mg tablet 2.5 mg (1/2 x 5 mg) PO Q4HPRN PRN moderate pain #0 tabs 09/29/23
oxycodone 5 mg tablet 5 mg PO Q4HPRN PRN severe pain when tolerating PO #10 tabs 09/29/23
rosuvastatin 5 mg tablet 5 mg PO HS #0 tabs 09/29/23
sennosides 8.6 mg tablet (Senna Laxative) 8.6 mg PO BIDPRN PRN constipation #0 tabs 09/29/23
simethicone 80 mg chewable tablet 80 mg PO Q6HPRN PRN gas distention #0 tabs 09/29/23
Tresiba FlexTouch U-200 36 units SC DAILY Diabetes ##0 10/09/23
acetaminophen 325 mg tablet 650 mg (2 x 325 mg) PO Q6HPRN PRN Pain #0 tabs 10/09/23
amoxicillin 875 mg-potassium clavulanate 125 mg tablet 1 tab PO Q12H #20 tabs 10/09/23
ibuprofen 600 mg tablet 600 mg PO Q6HPRN PRN mild pain #0 tabs 10/09/23
insulin NPH isoph U-100 human 100 unit/mL (3 mL) subcutaneous pen (Humulin N NPH U-100 Insulin KwikPen) 28 unit (0.28 mL) SC MEALS #0 mL 10/09/23
Home Medication Changes
Pending Results: Yes
Additional Pending Results:
blood culture 48hr read pending. 24 hr read no growth.
Total time spent discharging patient (in min): 30
--- NOTE | 2023-10-09 10:21 | W.PN.OBG.DWH ---
Addendum entered and electronically signed by Martha Hare, DO 10/09/23 10:38:
spoke with micro-no growth x 48 hrs on fluid aspirated from pelvic colletion.
Stable for dc home as planned.
Addendum entered and electronically signed by Martha Hare, DO 10/09/23 10:34:
wound culture neg x 48 hrs.
wound culture neg prelim -will wait for final report
Original Note:
Today's Communication / Plan
-
d/c home today.
Assessment/Plan
-
POD#10 s/p RA TL LSO right salpingectomy for menorrhagia/fibroid-path pending
Postop hematoma-draining still. Since over 35 ml/24 hrs will leave in a few more days until drainage less than 15-20 ml preferably. Drain is pigtail per IRAD and can be easily removed in office.
-pelvic fluid culture no growth, urine cx neg
-Afeb x >48 hrs
-Plan dc to home today on augmentin 875mg bid x 10 days. Has appt 10/11 with me in office for followup.
-Home VN ordered
_pt will call office sooner if drain output less than 15ml/24 hrs.
Diabetes: appreciate IMed recommendations. Insulin regimen adjustments made. Pt advised to follow up with her managing provider-Dr. Evelio Stafford this week for folow up.
Advised that due to DM with surgery and infection, sugars may not be well regulated on prior dosing and close follow up with outpt provider advised. She will call for appt this week.
Reviewed dc instructions and follow up. She expressed understanding of the above.
Subjective Data
-
POD# 10 s/p RA TLH LSO right salpingectomy
Feeling better, denies fever, chills, abdominal pain, N/V/D/C. Cramping she experienced at time of discharge improved when drain placed.
Denies any prob with urination.
Some itching near drain.
No vaginal bleeding or discharge
Objective Data
-
Laboratory Results
10/09/23 04:09
10/09/23 04:09
Vital Signs
Temp Pulse Resp BP Pulse Ox
98.3 F 69 18 98/53 98
10/09/23 07:35 10/09/23 07:35 10/09/23 07:35 10/09/23 07:35 10/09/23 07:35
VSS afeb Last temp 100 4/ 00:30 afeb since
Drain output recorded 35ml/ 24 hrs- serosanguinous nonpurulent fluid
COr: regular rate
Pulm: clear b/l no r/r/w
Abd: soft +bs ND/NT inc cdi no erythema or drainage
right buttock drain site: no erythema.
[2023-10-09 11:20] VITALS: BP 139/74
[2023-10-09 11:52] LABS: Glucose - Point of Care 188 mg/dl (70-99)
--- NOTE | 2023-10-09 12:23 | VNURNOTE ---
Home Health Liaison spoke with patient at 1100 to discuss [facility] nurse visits, schedule and homebound status. Patient is agreeable and understands that visits at home will be 2-3 x per week to assess and teach medical management and ANNAMARIA drain care.
Dr Hare will write Rx for NSS flushes for home. Patient is aware of basic care and flushing for ANNAMARIA drain and stated that her mother would be able to assist her once home.
Patient is aware that [facility] will contact them for start of care in 1-2 days after discharge from .
[facility] referral completed in [facility].
--- NOTE | 2023-10-09 15:10 | PN.CDI ---
CDI
- -
CDI:
Physician Documentation Request
Admit Date: 10/07/23 02:19
Dear Doctor Ananya,
Please review the following and provide your response in the progress notes.
Clinical Indicators:
- Patient admit for postop hematoma
- 10/07 PEDIATRIC LICENSED PRACTICAL NURSE note 'Anemia- related to surgery'
- 10/08 PEDIATRIC LICENSED PRACTICAL NURSE note 'Postop hematoma-draining still'
Laboratory Tests
10/06/23 10/08/23 10/09/23
21:47 06:24 04:09
Hgb 10.1 L 8.3 L 8.7 L
Please clarify, in your progress note, which of the following is the most likely type of anemia you are evaluating, monitoring and/or treating?
Acute blood loss anemia
Acute blood loss anemia with baseline chronic anemia (Specify type)
Anemia of chronic disease - indicate if neoplastic disease, CKD or other
Other
Use of terms such as suspected, likely, concern for, or probable (associated with a specific diagnosis that is being evaluated, monitored, or treated as if it exists) are acceptable and can be coded in the inpatient setting, when documented at the
time of discharge.
Thank you,
April Britt RN
CDI Specialist
Please use your independent medical judgment in providing your response.
--- NOTE | 2023-10-10 07:34 | W.PN.UPDATE ---
Update Note
Progress Note Update
anemia related to blood loss from hematoma that developed as a result of surgery.
--- NOTE | 2023-10-14 16:20 | W.PN.UPDATE ---
Update Note
Progress Note Update
Note: hgb 8.7 at time of re-admit is felt related to development of hematoma following surgery (acute blood loss related to surgery) and not chronic blood loss anemia.
== END 2023-10-09 12:32 | disposition home health service (06) | DRG 920 ==
LOC: 2 SOUTH 02:19
PROVIDERS: Obstetrics & Gynecology; Physician Assistant Medical; Radiology Vascular & Interventional Radiology; ADMITTING PHYSICIAN Obstetrics & Gynecology; CONSULT PHYSICIAN Internal Medicine; EMERGENCY PHYSICIAN Emergency Medicine; FAMILY PHYSICIAN Internal Medicine
PROC: 0W9J3ZZ Drainage of Pelvic Cavity, Percutaneous Approach (ICD-10-PCS; 2023-10-07)
DX: N99.840 Postprocedural hematoma of a genitourinary system organ or structure following a genitourinary system procedure (principal); D62 Acute posthemorrhagic anemia; Z11.52 Encounter for screening for COVID-19; E78.5 Hyperlipidemia, unspecified; E11.65 Type 2 diabetes mellitus with hyperglycemia
CPT/HCPCS: 49406; 51798; 71046; 74177; 80048; 80053; 81003; 81015; 82962; 83036; 83605; 83735; 85014; 85018; 85025; 85027; 87040; 87070; 87205; 87502; 87811; 96361; 96365; 99152; 99153; 99285; Q9967

== ENCOUNTER → 2024-02-23 15:57 | Outpatient (REF) | payer OTHER, SELFPAY | LOC: WDC 15:57 | PROVIDERS: ATTENDING PHYSICIAN Internal Medicine | DX: Z12.31 Encounter for screening mammogram for malignant neoplasm of breast (principal) | CPT/HCPCS: 77063; 77067 ==

== ENCOUNTER → 2024-10-26 08:26 | Outpatient (REF) | payer OTHER, SELFPAY | LOC: MRI 3T 08:26 | PROVIDERS: ATTENDING PHYSICIAN Orthopaedic Surgery; FAMILY PHYSICIAN Internal Medicine | DX: M25.512 Pain in left shoulder (principal) | CPT/HCPCS: 73221 ==

== ENCOUNTER → 2025-03-22 07:44 | Outpatient (REF) | payer OTHER, SELFPAY | LOC: WDC 07:44 | PROVIDERS: ATTENDING PHYSICIAN Family Medicine | DX: Z12.31 Encounter for screening mammogram for malignant neoplasm of breast (principal) | CPT/HCPCS: 77063; 77067 ==